=== PATIENT | male | born 1950 | race Caucasian/White ===

== ENCOUNTER 2019-11-27 11:11 | Emergency (ER) | payer MEDICARE, BC ==
--- NOTE | 2019-11-27 11:29 | ED Physician Documentation ---
PD HPI UPPER EXT INJURY - Stated complaint Stated Complaint: R FINGER LAC - Chief complaint Chief Complaint: Laceration - History obtained from History obtained from: Patient - History of Present Illness Location: Right, Finger (ring finger distally and also the middle finger distal phalanx, with swelling/tender of both, and laceration to ring finger distal phalanx.) Type of injury: Blunt / blow (he states he got kickback from piece of aluminum that he was cutting with chopsaw, that caused lac to his finger. 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 No: Weakness, Numbness Similar symptoms before: Has not had sx before Review of Systems Constitutional: denies: Fever Nose: denies: Rhinorrhea / runny nose, Congestion Throat: denies: Sore throat Respiratory: denies: Dyspnea, Cough PD PAST MEDICAL HISTORY - Past Medical History Past Medical History: No - Present Medications Home Medications: Ambulatory Orders Medication Instructions Recorded Confirmed Hydrocodone/Acetaminophen [[place] 1 each PO Q6H PRN #15 tablet 11/27/19 5-325 Tablet] Ibuprofen [Motrin] 600 mg PO TID PRN #25 tab 11/27/19 Sulfamethox/Trimeth 800/160 1 each PO BID #14 tablet 11/27/19 [Bactrim Ds 800/160] - Allergies Allergies/Adverse Reactions: Allergies Allergy/AdvReac Type Severity Reaction Status Date / Time No Known Drug Allergies Allergy Verified 11/27/19 11:58 PD ED PE NORMAL - Vitals Vital signs reviewed: Yes - General General: Alert and oriented X 3, No acute distress, Well developed/nourished - Derm Derm: Normal color, Warm and dry - Extremities Extremities: Other (right ring finger distal phalanx on volar radial side with stellate lac to fatty tissue without FB. Minimal oozing bleeding. Nailbed intact. Able to flex and extend though hurts. The middle finger distal phalanx with swelling and tenderness without laceration. Also able to flex and extend stiffly at that finger.) - Neuro Neuro: No motor deficit (he is able to flex and extend against resistance. Hurts some for extension. ), No sensory deficit Results - Vitals Vitals: Vital Signs - 24 hr 11/27/19 11/27/19 11:15 13:06 Temperature 36.6 C 36.9 C Heart Rate 85 75 Respiratory 16 20 Rate Blood Pressure 160/89 H 163/89 H O2 Saturation 96 100 Oxygen O2 Source Room air - Rads (name of study) right fingers Radiology: Prelim report reviewed, EMP read contemporaneously (ring finger with distal phalanx fracture with minimal angulation. Not at joint. I also view small nondispl fracture of distal phalanx middle finger. ), See rad report Procedures - Laceration (location) right ring finger Length in cm: 1.5 Wound type: Stellate, Into subcut fat, Clean Neurovascular status: Sensory intact, Motor intact, Vascular intact Tendon involvement: Tendon intact Anesthesia: Lidocaine 2% (digital block) Wound Preparation: Irrigated copiously NS, Wound explored, To the base, Wound edges modified. No: FB identified Skin layer closure: Nylon, Running, Size #-0 - enter number (4) Other: Patient tolerated well, No complications, Neurovascular intact, Dressing applied, Tetanus UTD Complexity: Simple Departure - Departure Disposition: 01 Home, Self Care Clinical Impression: Finger laceration Qualifiers: Encounter type: initial encounter Finger: index finger Damage to nail status: without damage Foreign body presence: without foreign body Laterality: right Qualified Code(s): S61.210A - Laceration without foreign body of right index finger without damage to nail, initial encounter Finger fracture, right Qualifiers: Encounter type: initial encounter Finger: index finger Fracture type: closed Phalanx: distal Fracture alignment: nondisplaced Qualified Code(s): S62.660A - Nondisplaced fracture of distal phalanx of right index finger, initial encounter for closed fracture Condition: Stable Record reviewed to determine appropriate education?: Yes Instructions: ED Fx Finger Open, ED Laceration All Follow-Up: Jose Luis Keita MD [Provider Admit Priv/Credential] - Prescriptions: Hydrocodone/Acetaminophen [[place] 5-325 Tablet] 1 each PO Q6H PRN #15 tablet PRN Reason: Pain Ibuprofen [Motrin] 600 mg PO TID PRN #25 tab PRN Reason: Pain Sulfamethox/Trimeth 800/160 [Bactrim Ds 800/160] 1 each PO BID #14 tablet Comments: It is okay to wash and shower. Clean off the wound twice a day with soap and water, or peroxide and water. Apply some antibiotic ointment to it to keep it moist. Also to watch for signs of infection such as purulence, redness or increasing pain. Return to your primary care or the ER at the specified time for suture removal. Suture removal 7 to 10 days. Use a finger splint for both the pointer and middle finger tips to protect motion on them due to the fractures. Gentle range of motion once or twice daily of the fingers so that the lacerated part stretch is out a little bit as its healing. No real use of the hand for 3 to 4 weeks to protect the fingertip. Ibuprofen or naproxen twice or 3 times daily over the next several days to a week. Add Tylenol or hydrocodone as needed for pain. Bactrim antibiotic twice daily for a week to reduce the chance of infection. Follow-up with orthopedics regarding reevaluation of the finger fractures as they are healing. Call for an appointment with the target of the appointment in about a week Discharge Date/Time: 11/27/19 13:19
[2019-11-27] MEDS ORDERED: LIDOCAINE 2% 50 ML MDV SUBQ STA (11:44)
[2019-11-27] MEDS ORDERED: ACETAMINOPHEN 325 MG TABLET PO STA (11:45)
[2019-11-27] MEDS ORDERED: NAPROXEN 250 MG TABLET PO STA (11:45)
[2019-11-27] MEDS ORDERED: LIDOCAINE 1% 2 ML VIAL SUBQ STA (11:47)
--- NOTE | 2019-11-27 12:09 | XRAY Report ---
Reason: injured finger working with aluminum/chop saw Procedure Date: 11/27/2019 Accession Number: [id number] / [id number] Procedure: XR - Finger(s) RT CPT Code: Final Report FULL RESULT: PROCEDURE: Finger(s) RT INDICATIONS: injured finger working with aluminum/chop saw TECHNIQUE: AP hand, 2 views of the second finger(s) acquired. COMPARISON: None FINDINGS: Bones: Acute slightly comminuted fracture involving second distal phalangeal base is seen with minimal volar displacement at fracture site. No other fracture or dislocation is seen. No suspicious bony lesions. Soft tissues: No suspicious soft tissue calcifications. Soft tissue swelling surrounding second digit distally is noted. IMPRESSION: Acute slightly displaced and comminuted second distal phalangeal base fracture with surrounding soft tissue swelling. Reviewed by: Mp Dye MD on 11/27/2019 12:04 PM PDT Approved by: Mp Dye MD on 11/27/2019 12:04 PM PDT Station ID: [id number]
[2019-11-27] MEDS ORDERED: SULFAMETH/TRIMETH DS 800/160 MG TABLET PO STA (12:50)
[2019-11-27 13:07] VITALS: BP 163/89
== END 2019-11-27 13:19 | disposition home or self-care (01) ==
LOC: ED 11:11
DX: S62.630A Displaced fracture of distal phalanx of right index finger, initial encounter for closed fracture (principal); S62.662A Nondisplaced fracture of distal phalanx of right middle finger, initial encounter for closed fracture; S61.210A Laceration without foreign body of right index finger without damage to nail, initial encounter; W20.8XXA Other cause of strike by thrown, projected or falling object, initial encounter; Y93.89 Activity, other specified
CPT/HCPCS: 12001; 73140; 99283; A9270